=== PATIENT | female | born 1970 | race African-American/Black ===

== ENCOUNTER 2020-02-08 12:43 | Emergency (ER) | payer BC ==
[~2020-02-08] VITALS: Ht 165.1 cm; Wt 136.1 kg
--- NOTE | 2020-02-08 12:43 | NUR ---
Patient CLEVELANDOral AMAIRANI, triaged by RN. Waiting for an available bed.
--- NOTE | 2020-02-08 12:50 | NUR ---
Dr. Brian is evaluating the patient while on the ambulance gurney.
[2020-02-08 13:08] VITALS: BP 152/90
--- NOTE | 2020-02-08 13:15 | NUR ---
BIBA W C/O RIGHT ANKLE PAIN S/P FALL. R ANKLE IS SPLINTED BY EMS. PT APPEARS ALTERED BUT IS AROUSABLE TO PAINFUL STIMULI, FSBS 119. PT A&O X2. OBVIOUS DEFORMITY NOTED TO R ANKLE. PT DENIES PAIN ELSEWHERE. +2 PEDAL PULSES NOTED TO R FOOT. PT IN [place]ANE.
--- NOTE | 2020-02-08 13:33 | NUR ---
XRAY AT BEDSIDE
[2020-02-08] MEDS ORDERED: fentaNYL citrate 0.05 MG/ML VIAL IVP ONE ×2 (13:45→15:50)
[2020-02-08] MEDS ORDERED: ONDANSETRON 4 MG/2 ML VIAL IVP ONE (13:45)
[2020-02-08] MEDS ORDERED: fentaNYL citrate 0.05 MG/ML VIAL ONE ×2 (13:46→15:50)
[2020-02-08] MEDS ORDERED: ONDANSETRON 4 MG/2 ML VIAL ONE (13:46)
--- NOTE | 2020-02-08 14:19 | NUR ---
The patient was transferred to [facility] for further care.
[2020-02-08 15:04] LABS: BASOPHILS # (AUTO) 0.1 K/uL (0.00-0.22); BASOPHILS % (AUTO) 0.3 % (0.0-2.0); EOSINOPHILS % (AUTO) 0.2 % (0.0-4.0); HEMATOCRIT 44.7 % (36-48); HEMOGLOBIN 14.4 g/dL (12.0-16.0); LYMPHOCYTES # (AUTO) 1.7 K/uL (2.5-16.5); LYMPHOCYTES % (AUTO) 10.8 % (20.5-51.1); MEAN CORPUSCULAR HEMOGLOBIN 26 pg (27-31); MEAN CORPUSCULAR HGB CONC 32 g/dL (33-37); MEAN CORPUSCULAR VOLUME 81.9 fL (80-94); MONOCYTES % (AUTO) 6.3 % (1.7-9.3); NEUTROPHILS # (AUTO) 13.1 K/uL (1.8-7.7); NEUTROPHILS % (AUTO) 82.4 % (42.2-75.2); PLATELET COUNT (AUTO) 212 K/uL (140-450); RED BLOOD CELL COUNT(AUTO) 5.45 MIL/uL (4.20-5.40); RED CELL DISTRIBUTION WIDTH 15.8 % (11.6-13.7); WHITE BLOOD COUNT (AUTO) 15.9 K/uL (4.8-10.8)
[2020-02-08 15:43] LABS: ALBUMIN 4.2 g/dL (3.4-5.0); ASPARTATE AMINOTRANSFERASE 29 U/L (15-37); CHLORIDE 103 mmol/L (98-107); CREATININE 0.9 mg/dL (0.6-1.3); GFR ARICAN-AMERICAN 85 mL/min (>90); GLUCOSE 119 mg/dL (74-106); SODIUM SERUM 140 mmol/L (136-145); UREA NITROGEN, BLOOD 11 mg/dL (7-18)
[2020-02-08] MEDS ORDERED: fentaNYL citrate 0.05 MG/ML VIAL IVP STA (15:48)
[2020-02-08 15:56] LABS: TOTAL BILIRUBIN 0.4 mg/dL (0.0-1.0)
--- NOTE | 2020-02-08 16:07 | NUR ---
Patient returned from CT scan.
[2020-02-08] MEDS ORDERED: HALOPERIDOL IM 5 MG/ML VIAL IM ONE (16:25)
--- NOTE | 2020-02-08 16:30 | NUR ---
Dr. Husain evaluating the patient at bedside.
[2020-02-08] MEDS ORDERED: MORPHINE SULFATE 4 MG/ML SYR IVP STA (17:32)
[2020-02-08] MEDS ORDERED: MORPHINE SULFATE 4 MG/ML SYR ONE (17:33)
[2020-02-08 18:01] LABS: PROTHROMBIN TIME 9.9 secs (10.8-13.4)
[2020-02-09] MEDS ORDERED: OLANZapine 5 MG ODT SL ONE
--- NOTE | 2020-02-09 07:44 | NUR ---
Report received from Alexis QUIROZ. Pt laying in [facility] chair D at this time. Splint in place. Cooperative. VSS.
--- NOTE | 2020-02-09 08:43 | NUR ---
ERECTION SHOP SUPERVISOR CALLED AND SPOKE TO ROB. GARCIA WILL COME TO SPEAK WITH PATIENT ABOUT GOING HOME.
--- NOTE | 2020-02-09 10:06 | NUR ---
Parts Data Writer, Thomas, is evaluating the patient at bedside.
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
--- NOTE | 2020-02-09 15:00 | NUR ---
The patient is speaking with her , Paul Jaeger. .
[2020-02-09 15:50] VITALS: BP 152/90
--- NOTE | 2020-02-09 15:50 | NUR ---
Patient discharged with v/s stable. Written and verbal after care instructions given and explained. Patient alert, oriented and verbalized understanding of instructions. Ambulatory with steady gait. All questions addressed prior to discharge. ID band removed. Patient advised to follow up with PMD. Rx of [place] given. Patient educated on indication of medication including possible reaction and side effects. Opportunity to ask questions provided and answered. Paperwork left at ER. will leave in er for patient for follow up.
== END 2020-02-09 15:50 | disposition home or self-care (01) ==
LOC: MED 12:43
DX: S82.831A Other fracture of upper and lower end of right fibula, initial encounter for closed fracture (principal); X58.XXXA Exposure to other specified factors, initial encounter; Y93.89 Activity, other specified; Y92.89 Other specified places as the place of occurrence of the external cause; Y99.8 Other external cause status
CPT/HCPCS: 27810; 36415; 70450; 71045; 73610; 73700; 80053; 84484; 85025; 85610; 85730; 93005; 96372; 96374; 96376; 99291; G0482; J1630; J2270; J2405; J3010